=== PATIENT | female | born 1990 | race Caucasian/White ===

== ENCOUNTER 2022-05-12 16:49 | Emergency (ER) | payer MEDICAID, SELFPAY ==
[2022-05-12] VITALS (9 sets, daily range): BP systolic 97–113; BP diastolic 54–67; PULSE 66–115; RESP 16; TEMP 36.8–37.1; O2SAT 96–100; BMI 24.2
--- NOTE | 2022-05-12 16:54 | PC.NURSE ---
UA COLLECTED AT THIS TIME
[2022-05-12 17:16] LABS: Microscopic, Urine URINE MICROSCOPIC (MICROSCOPIC)
[2022-05-12 17:20] LABS: Appearance,Urine CLOUDY (Clear); Bilirubin,Urine Negative (Negative); Blood, Urine 3+ (Negative); Color,Urine YELLOW (Yellow); Glucose,Urine (UA) Negative (Negative); Ketones,Urine Negative (Negative); Leukocyte Esterase,Urine 1+ (Negative); Nitrate,Urine POSITIVE (Negative); Protein,Urine 1+ (Negative); Specific Gravity, Urine >= 1.030 (1.005-1.030)
[2022-05-12 17:23] LABS: Urine Pregnancy, HCG Qual. Positive (Negative)
--- NOTE | 2022-05-12 17:23 | PC.NURSE ---
ED MD AT BEDSIDE TO EVALUATE PT
[2022-05-12 17:28] LABS: Alanine Aminotransferase 21 U/L (12-78); Albumin Level 4.4 g/dl (3.5-5.0); Albumin/Globulin Ratio 1.6 (1.1-1.8); Alkaline Phosphatase 86 U/L (38-126); Anion Gap 10.7 mEq/L (5-15); Aspartate Amino Transferase 22 U/L (14-36); Bilirubin,Total 0.8 mg/dl (0.2-1.3); Blood Urea Nitrogen 10 mg/dl (7-17); Calcium 9.1 mg/dl (8.4-10.2); Carbon Dioxide 23 mmol/L (22.0-30.0); Chloride 106 mmol/L (98-107); Creatinine Clearance Estimated 126 mL/min (50-200); Estimated Glomerular Filt Rate 98 ml/min (>60); GFR (African American) 119 ML/MIN (>60); Globulin 2.7 g/dL (1.3-3.2); Glucose 100 mg/dl (74-100); Potassium 3.7 mmoL/L (3.5-5.1); Sodium 136 mmol/L (136-145); Total Protein,Serum 7.1 g/dl (6.3-8.2)
[2022-05-12 17:29] LABS: Basophils # 0.1 K/mm3 (0-0.2); Basophils % 1.1 % (0.1-2.0); Eosinophils # 0.2 K/mm3 (0.0-0.4); Eosinophils % 1.3 % (0.1-12.0); Hematocrit 40.2 % (37.0-47.0); Hemoglobin 13.3 g/dL (12.2-16.2); Lymphocytes # 1.4 K/mm3 (0.7-4.5); Lymphocytes % 11.8 % (10-50); Mean Corpuscular HGB Conc 33.1 g/dL (31.8-35.4); Mean Corpuscular Hemoglobin 33.7 pg (27.0-31.2); Mean Corpuscular Volume 101.8 fl (81-99); Mean Platelet Volume 8.8 fl (7.4-10.4); Monocytes # 0.4 K/mm3 (0.1-1.0); Monocytes % 3.3 % (1.7-9.3); Neutrophils # 9.9 K/mm3 (1.8-7.8); Neutrophils % 82.5 % (37.0-80.0); Platelet Count 196 K/mm3 (142-424); Red Blood Count 3.95 M/mm3 (4.20-5.40); Red Cell Distribution Width 12.4 % (11.5-17.5)
--- NOTE | 2022-05-12 17:46 | US_ITS ---
PROCEDURE INFORMATION: Exam: US , Transvaginal Exam date and time: 05/12/2022 6:45 PM Age: 31 years old Clinical indication: complicated by abdominal or pelvic pain; Left lower quadrant; First trimester (<14 weeks 0 days); Gestational age or lmp: 5 w 2 d; ; Prior surgery; Surgery date: 6+ months; Surgery type: Iud removal; Additional info: Torsion, vs ectopic, vs cyst; TECHNIQUE: Imaging protocol: Real-time transvaginal obstetrical ultrasound of the maternal pelvis with image documentation. Transvaginal imaging was used for better evaluation of the fetus, adnexa, and/or cervix. COMPARISON: No relevant prior studies available. FINDINGS: UTERUS: The uterus is gravid with a single intrauterine gestational sac containing tiny pole and yolk sac without cardiac activity. . COMPOSITE GESTATIONAL AGE/ POLE corresponds to 6 weeks and 1 day with estimated date of confinement of 01/04/2023. . ADNEXA/OVARIES: RIGHT ovary measures approximately 6.3 mL and LEFT ovary 10.0 mL. Simple appearing anechoic unilocular functional cysts/follicles in the ovaries without septations, debris or mural nodularity measuring 2.3 cm on the LEFT and 1.6 cm on the RIGHT. No adnexal mass or abnormality. No free fluid in the pelvis. IMPRESSION: 1. Single intrauterine gestation with tiny pole without visualization of cardiac activity. 2. Recommend short interval follow up in 7-10 days. 3. Bilateral anechoic unilocular simple functional cysts/follicles. COMMENT: RECOMMENDATIONS FOR FOLLOWUP IF NO VIABLE INTRAUTERINE : Tiny embryo (2-6 mm) and NO heartbeat: Followup sonogram in 7-10 days - if no heartbeat embryonic demise.
--- NOTE | 2022-05-12 17:47 | PC.NURSE ---
RADIOLOGY NOTIFIED OF TRANSVAGINAL U/S
[2022-05-12 17:53] LABS: Bacteria,Urine 1+ /lpf; WBC,Urine TNTC #/hpf (0-3)
--- NOTE | 2022-05-12 18:25 | HMH.EDGENADL ---
ED Disposition Clinical Impression: UTI (urinary tract infection) during Qualifiers: Trimester: unspecified trimester Qualified Code(s): O23.40 - Unspecified infection of urinary tract in , unspecified trimester Disposition: Home, Self-Care Condition on Discharge: Good Instructions: DI for Acute Abdominal Pain Additional Instructions: Please take cefdinir as prescribed for urinary tract infection seen in the emergency department and follow-up with your primary care physician immediately for pain consistent with threatened in the emergency department. You may go on to have a viable or a miscarriage. Return to the emergency department with persistent bleeding, worsening or persistent pain, as torsion is unlikely but not able to be excluded 100% as we discussed, due to limitation of transvaginal ultrasound. Please also follow-up in the next week with Dr. David with [facility]. Also return to the emergency department with fevers, inability to tolerate food or drink by mouth or other new or concerning symptoms. Prescriptions: Cefdinir [Omnicef 300mg Capsule] 300 mg PO BID #20 cap Transmission Status: Pending to [facility] Referrals: Provider,MD Tej [Primary Care Provider] - Diamond David DO [Physician] - - Critical Care Critical Care Time: No Attestation: On 05/12/22, the high probability of a clinically significant, sudden or life threatening deterioration of the following system(s) required my full and direct attention, intervention and personal management. The time I documented below is in addition to time spent performing reported procedures but includes the following listed in this critical care notation. Medical Decision Making - Sony Inquiry Pt receiving controlled substance: No Vital Signs: 05/12/22 16:51 05/12/22 17:00 05/12/22 17:30 Temperature 98.3 F Temperature Source Oral Pulse Rate 105 H 97 H Pulse Rate [Radial] 115 H Respiratory Rate 16 Blood Pressure 113/67 104/63 L Blood Pressure [Right Arm] 113/67 Blood Pressure Mean 76 73 Blood Pressure Mean [Right Arm] 82 Blood Pressure Position [Right Arm] Sitting 02 Sat by Pulse Oximetry 98 99 96 Oxygen Delivery Method Room Air 05/12/22 18:00 05/12/22 19:31 05/12/22 20:00 Temperature Temperature Source Pulse Rate 68 72 69 Pulse Rate [Radial] Respiratory Rate Blood Pressure 99/57 L 101/54 L 98/54 L Blood Pressure [Right Arm] Blood Pressure Mean 66 Blood Pressure Mean [Right Arm] Blood Pressure Position [Right Arm] 02 Sat by Pulse Oximetry 100 99 100 Oxygen Delivery Method Room Air Room Air 05/12/22 20:30 05/12/22 21:00 Temperature Temperature Source Pulse Rate 76 69 Pulse Rate [Radial] Respiratory Rate Blood Pressure 99/58 L 97/55 L Blood Pressure [Right Arm] Blood Pressure Mean Blood Pressure Mean [Right Arm] Blood Pressure Position [Right Arm] 02 Sat by Pulse Oximetry 100 100 Oxygen Delivery Method Room Air Room Air - Lab Data Lab Results 05/12/22 16:54: Urine Color Yellow, Urine Appearance Cloudy, Urine pH 6.0, Ur Specific [place] >= 1.030, Urine Protein 1+, Urine Glucose (UA) Negative, Urine Ketones Negative, Urine Blood 3+, Urine Nitrate Positive, Urine Bilirubin Negative, Urine Urobilinogen 4.0, Ur Leukocyte Esterase 1+ A, Urine RBC 10-20, Urine WBC Tntc, Ur Squamous Epith Cells 3-5, Urine Bacteria 1+ 05/12/22 16:54: Urine HCG, Qual Positive 05/12/22 17:10: WBC 12.0 H, RBC 3.95 L, Hgb 13.3, Hct 40.2, MCV 101.8 H, MCH 33.7 H, MCHC 33.1, RDW 12.4, Plt Count 196, MPV 8.8, Neut % (Auto) 82.5 H, Lymph % (Auto) 11.8, [place] % (Auto) 3.3, Eos % (Auto) 1.3, Baso % (Auto) 1.1, Neut # (Auto) 9.9 H, Lymph # (Auto) 1.4, [place] # (Auto) 0.4, Eos # (Auto) 0.2, Baso # (Auto) 0.1 05/12/22 17:10: Sodium 136, Potassium 3.7, Chloride 106, Carbon Dioxide 23, Anion Gap 10.7, BUN 10, Creatinine 0.70, Estimated Creat Clear 126, Estimated GFR 98, Est
--- NOTE | 2022-05-12 18:43 | PC.NURSE ---
1840 PT TO U/S PER WC AT THIS TIME
--- NOTE | 2022-05-12 21:06 | PC.NURSE ---
Pt updated on expected wait time. Pt agreeable. No other needs at this time.
--- NOTE | 2022-05-12 22:31 | PC.NURSE ---
MD at BS speaking with pt about results.
== END 2022-05-12 23:10 | disposition home or self-care (01) ==
PROVIDERS: Emergency Provider Student in an Organized Health Care Education/Training Program
DX: O23.41 Unspecified infection of urinary tract in pregnancy, first trimester (principal); N39.0 Urinary tract infection, site not specified; R10.32 Left lower quadrant pain
CPT/HCPCS: 36415; 76817; 80053; 81001; 81025; 84702; 85025; 86900; 86901; 87086; 87088; 87186; 99284

== ENCOUNTER → 2022-05-14 08:26 | Outpatient (CLI) | payer MEDICAID, SELFPAY ==
[2022-05-15 08:15] LABS: Progesterone 13.3 ng/mL (.)
== END ==
PROVIDERS: PCP Nurse Practitioner Family; Visit Provider Obstetrics & Gynecology
DX: Z34.90 Encounter for supervision of normal pregnancy, unspecified, unspecified trimester (principal)
CPT/HCPCS: 36415; 84144; 84702

== ENCOUNTER 2022-05-31 03:12 | Emergency (ER) | payer MEDICAID, SELFPAY ==
[2022-05-31 03:13] VITALS: BP 108/49; PULSE 129; RESP 16; TEMP 37.2; O2SAT 99; BMI 25.3
[2022-05-31 03:24] LABS: Microscopic, Urine URINE MICROSCOPIC (MICROSCOPIC)
[2022-05-31 03:25] LABS: Bilirubin,Urine Negative (Negative); Blood, Urine TRACE-I (Negative); Color,Urine YELLOW (Yellow); Glucose,Urine (UA) Negative (Negative); Ketones,Urine 2+ (Negative); Leukocyte Esterase,Urine Negative (Negative); Nitrate,Urine Negative (Negative); Protein,Urine Negative (Negative); Specific Gravity, Urine >= 1.030 (1.005-1.030); Urobilinogen,Urine 0.2 EU/dl (0.2)
[2022-05-31 03:28] LABS: Appearance,Urine Slightly Cloudy (Clear)
[2022-05-31 03:30] LABS: Influenza A, PCR Not Detected (NotDetected); Influenza B, PCR Not Detected (NotDetected)
[2022-05-31 03:36] LABS: Bacteria,Urine 1+ /lpf; Urine Pregnancy, HCG Qual. Positive (Negative); WBC,Urine Occasional #/hpf (0-3)
[2022-05-31 03:52] LABS: Alanine Aminotransferase 14 U/L (12-78); Albumin Level 4.4 g/dl (3.5-5.0); Albumin/Globulin Ratio 1.6 (1.1-1.8); Alkaline Phosphatase 75 U/L (38-126); Anion Gap 13.6 mEq/L (5-15); Aspartate Amino Transferase 20 U/L (14-36); Bilirubin,Total 1.1 mg/dl (0.2-1.3); Blood Urea Nitrogen 9 mg/dl (7-17); Calcium 9.6 mg/dl (8.4-10.2); Carbon Dioxide 21 mmol/L (22.0-30.0); Chloride 103 mmol/L (98-107); Creatinine Clearance Estimated 159 mL/min (50-200); Estimated Glomerular Filt Rate 117 ml/min (>60); GFR (African American) 142 ML/MIN (>60); Globulin 2.7 g/dL (1.3-3.2); Glucose 124 mg/dl (74-100); Potassium 3.6 mmoL/L (3.5-5.1); Sodium 134 mmol/L (136-145); Total Protein,Serum 7.1 g/dl (6.3-8.2)
[2022-05-31 03:54] LABS: Basophils % 0.1 % (0.1-2.0); Eosinophils % 0.5 % (0.1-12.0); Hematocrit 39.8 % (37.0-47.0); Hemoglobin 12.9 g/dL (12.2-16.2); Lymphocytes # 0.2 K/mm3 (0.7-4.5); Mean Corpuscular HGB Conc 32.3 g/dL (31.8-35.4); Mean Corpuscular Volume 102.1 fl (81-99); Mean Platelet Volume 8.2 fl (7.4-10.4); Monocytes # 0.2 K/mm3 (0.1-1.0); Monocytes % 2.9 % (1.7-9.3); Neutrophils # 7.1 K/mm3 (1.8-7.8); Neutrophils % 93.5 % (37.0-80.0); Platelet Count 175 K/mm3 (142-424); Red Cell Distribution Width 12.6 % (11.5-17.5); White Blood Count 7.6 K/mm3 (4.8-10.8)
[2022-05-31 03:56] LABS: MANUAL DIFFERENTIAL MANUAL DIFFERENTIAL (MANUAL DIFF)
[2022-05-31 03:59] LABS: Coronavirus 19, PCR Detected (NotDetected)
--- NOTE | 2022-05-31 04:02 | HMH.EDPREG ---
Discharge Plan Disposition Patient Disposition: Home, Self-Care Chief Complaint: Nausea/Vomiting/Diarrhea Prescriptions Prescriptions: No Action PNV cmb#95-ferrous fumarate-FA 28 mg iron- 800 mcg tablet 1 tab PO DAILY Referrals Referrals: Barbara Negrete [Primary Care Provider] - Enter time for follow up Clinical Impressions Clinical Impression: Hyperemesis gravidarum, , COVID-19 Instructions Patient Instructions: Hyperemesis Gravidarum, DI for COVID-19 (Suspected or Confirmed ) Discharge ED Provider: Jose Vasquez HPI General Chief complaint: Nausea/Vomiting/Diarrhea Stated complaint: 8 weeks , vomiting, body aches Time Seen by Provider: 05/31/22 04:02 Mode of Arrival: Ambulatory Source of Information: Patient, Spouse and Medical Record Limitations: No Limitations Description of Symptoms (Recalled from ER Triage Doc. by RN): pt states she began vomitting yesterday morning unable to keep anything down. then woke up around midnight have body aches. pt denies any abd pain. History of Present Illness HPI Narrative: pt with 8 weeks preg with vomiting - has body aches Complaint: other (vomiting ) Vaginal bleeding: none : Yes OB History - Previous Pregnancies: hyperemesis care: followed by OB Related Data Home Medications Medication Instructions Recorded Confirmed vit no.95-ferrous 1 tab PO DAILY Supplement 05/31/22 05/31/22 fumarate 28 mg-folic acid 800 mcg tablet Allergies Allergy/AdvReac Type Severity Reaction Status Date / Time No Known Allergies Allergy Verified 05/22/22 11:06 PFSH PFSH Social History Smoking Status: Current every day smoker alcohol intake: never substance use type: denies use current occupational status: other ROS Obtained: Yes All systems reviewed & no additional complaints except as documented and Yes Systems reviewed as appropriate & no additional complaints except as documented Physical Exam General General appearance: alert Head Head exam: normocephalic Eye Eye exam: Present PERRL and EOMI ENT ENT exam: Present mucous membranes moist Neck Neck exam: Present full ROM Respiratory Respiratory exam: Absent respiratory distress Cardiovascular Cardiovascular exam: Present regular rate Abdominal Exam Abdominal exam: Present soft; Absent tenderness Extremities Exam Extremities exam: Absent tenderness Back Exam Back exam: Absent CVA tenderness (R) Neurological Exam Neurological exam: Present alert, oriented X3 and CN II-XII intact Psychiatric Psychiatric exam: Present normal affect Skin Skin exam: Absent rash Medical Decision Making Medical Records Medical records reviewed: Yes I reviewed the patient's medical records. Sony Inquiry Pt receiving controlled substance: No Vital Signs: 05/31/22 03:13 05/31/22 05:00 Temperature 98.9 F Temperature Source Oral Pulse Rate 113 H Pulse Rate [Right] 129 H Respiratory Rate 16 Blood Pressure 93/53 L Blood Pressure [Right Arm] 108/49 L Blood Pressure Mean [Right Arm] 68 02 Sat by Pulse Oximetry 99 100 Oxygen Delivery Method Room Air Lab Data Lab results reviewed: Yes I reviewed the patient's lab results. Lab Results 05/31/22 03:16: Urine Color Yellow, Urine Appearance Slightly cloudy, Urine pH 6.0, Ur Specific [place] >= 1.030, Urine Protein Negative, Urine Glucose (UA) Negative, Urine Ketones 2+, Urine Blood Trace-i, Urine Nitrate Negative, Urine Bilirubin Negative, Urine Urobilinogen 0.2, Ur Leukocyte Esterase Negative, Urine WBC Occasional, Urine Bacteria 1+ 05/31/22 03:16: Urine HCG, Qual Positive 05/31/22 03:19: SARS-CoV-2 (PCR) Detected A, Influenza A Untype (PCR) Not detected, Influenza Type B (PCR) Not detected 05/31/22 03:35: HCG, Quant [id number] H 05/31/22 03:35: WBC 7.6, RBC 3.90 L, Hgb 12.9, Hct 39.8, MCV 102.1 H, MCH 33.0 H, MCHC 32.3, RDW 12.6, Plt Count 175, MPV 8.2, Neut % (Auto) 93.5 H, Lymph % (Auto) 3.0 L
[2022-05-31 04:37] LABS: HCG,Quantitative 91820 mIU/ml (0-5.42)
[2022-05-31 04:48] LABS: Lymphocytes % 3 % (10-50); Macrocytosis 1+; Monocytes % 1 % (2-9); Neutrophils % 96 % (42-76); Platelet Estimate Normal; Total Cells Counted 100
[2022-05-31 05:00] VITALS: BP 93/53; PULSE 113; O2SAT 100
--- NOTE | 2022-05-31 05:18 | PC.NURSE ---
Pt complains of severe nausea. RN notified.
[2022-05-31 06:20] VITALS: BP 104/78; PULSE 90; RESP 16; TEMP 37.1; O2SAT 97
== END 2022-05-31 06:20 | disposition home or self-care (01) ==
PROVIDERS: Emergency Provider Emergency Medicine; PCP Nurse Practitioner Family
DX: O98.511 Other viral diseases complicating pregnancy, first trimester (principal); U07.1 COVID-19; O21.0 Mild hyperemesis gravidarum; R19.7 Diarrhea, unspecified; M79.10 Myalgia, unspecified site; O99.331 Smoking (tobacco) complicating pregnancy, first trimester; F17.210 Nicotine dependence, cigarettes, uncomplicated; Z3A.08 8 weeks gestation of pregnancy
CPT/HCPCS: 80053; 81001; 81025; 84702; 85007; 85025; 96361; 96374; 99284; C9803; U0003; U0005

== ENCOUNTER → 2022-06-07 15:48 | Outpatient (CLI) | payer MEDICAID, SELFPAY | PROVIDERS: Visit Provider Obstetrics & Gynecology | DX: Z34.90 Encounter for supervision of normal pregnancy, unspecified, unspecified trimester (principal) | CPT/HCPCS: 87086 ==

== ENCOUNTER → 2022-06-25 11:18 | Outpatient (CLI) | payer MEDICAID, SELFPAY ==
[2022-06-25 13:27] LABS: Basophils % 0.4 % (0.1-2.0); Eosinophils # 0.1 K/mm3 (0.0-0.4); Eosinophils % 1.3 % (0.1-12.0); Hematocrit 37.1 % (37.0-47.0); Hemoglobin 12.5 g/dL (12.2-16.2); Lymphocytes # 1.3 K/mm3 (0.7-4.5); Lymphocytes % 20.2 % (10-50); Mean Corpuscular HGB Conc 33.6 g/dL (31.8-35.4); Mean Corpuscular Hemoglobin 34.1 pg (27.0-31.2); Mean Corpuscular Volume 101.3 fl (81-99); Mean Platelet Volume 8.6 fl (7.4-10.4); Monocytes # 0.3 K/mm3 (0.1-1.0); Monocytes % 4.3 % (1.7-9.3); Neutrophils # 4.7 K/mm3 (1.8-7.8); Neutrophils % 73.8 % (37.0-80.0); Platelet Count 200 K/mm3 (142-424); Red Blood Count 3.66 M/mm3 (4.20-5.40); Red Cell Distribution Width 13.2 % (11.5-17.5); White Blood Count 6.3 K/mm3 (4.8-10.8)
[2022-06-26 09:13] LABS: HIV Screen 4th Generation wRfx Non Reactive (Non Reactive); Hepatitis B Surface Antigen Negative (Negative); Hepatitis C Antibody <0.1 s/co ratio (0.0-0.9)
[2022-06-26 11:13] LABS: Rapid Plasma Reagin Ab Titer Non Reactive (NonRea<1:1)
== END ==
PROVIDERS: PCP Nurse Practitioner Family; Visit Provider Obstetrics & Gynecology
DX: Z34.90 Encounter for supervision of normal pregnancy, unspecified, unspecified trimester (principal)
CPT/HCPCS: 36415; 85025; 86592; 86703; 86762; 86850; 87340; 87380; G0432

== ENCOUNTER 2022-08-15 01:37 | Emergency (ER) | payer MEDICAID, SELFPAY ==
[2022-08-15] VITALS (7 sets, daily range): BP systolic 110–129; BP diastolic 65–77; PULSE 78–98; RESP 17–19; TEMP 36.7–36.8; O2SAT 96–98; BMI 48.3; BMI 21.9
[2022-08-15 01:59] LABS: Microscopic, Urine URINE MICROSCOPIC (MICROSCOPIC)
[2022-08-15 02:00] LABS: Bilirubin,Urine Negative (Negative); Blood, Urine Negative (Negative); Color,Urine YELLOW (Yellow); Glucose,Urine (UA) Negative (Negative); Ketones,Urine Negative (Negative); Leukocyte Esterase,Urine Negative (Negative); Nitrate,Urine Negative (Negative); Protein,Urine Negative (Negative); Specific Gravity, Urine >= 1.030 (1.005-1.030); Urobilinogen,Urine 0.2 EU/dl (0.2)
[2022-08-15 02:22] LABS: Appearance,Urine Slightly Cloudy (Clear); Bacteria,Urine 1+ /lpf; WBC,Urine Occasional #/hpf (0-3)
[2022-08-15 02:31] LABS: Basophils # 0.1 K/mm3 (0-0.2); Basophils % 0.5 % (0.1-2.0); Eosinophils # 0.2 K/mm3 (0.0-0.4); Eosinophils % 1.5 % (0.1-12.0); Hematocrit 35.1 % (37.0-47.0); Hemoglobin 11.7 g/dL (12.2-16.2); Lymphocytes # 1.3 K/mm3 (0.7-4.5); Lymphocytes % 12.3 % (10-50); Mean Corpuscular HGB Conc 33.3 g/dL (31.8-35.4); Mean Corpuscular Volume 101.8 fl (81-99); Mean Platelet Volume 8.6 fl (7.4-10.4); Monocytes # 0.4 K/mm3 (0.1-1.0); Monocytes % 3.4 % (1.7-9.3); Neutrophils # 8.4 K/mm3 (1.8-7.8); Neutrophils % 82.3 % (37.0-80.0); Platelet Count 213 K/mm3 (142-424); Red Blood Count 3.45 M/mm3 (4.20-5.40); Red Cell Distribution Width 13.5 % (11.5-17.5); White Blood Count 10.2 K/mm3 (4.8-10.8)
[2022-08-15 02:34] LABS: Chloride 102 mmol/L (98-107); Potassium 3.8 mmoL/L (3.5-5.1); Sodium 136 mmol/L (136-145)
[2022-08-15 02:37] LABS: Alanine Aminotransferase 51 U/L (12-78); Albumin Level 3.9 g/dl (3.5-5.0); Albumin/Globulin Ratio 1.5 (1.1-1.8); Alkaline Phosphatase 82 U/L (38-126); Anion Gap 12.8 mEq/L (5-15); Aspartate Amino Transferase 40 U/L (14-36); Bilirubin,Total 0.5 mg/dl (0.2-1.3); Blood Urea Nitrogen 6 mg/dl (7-17); Calcium 9.4 mg/dl (8.4-10.2); Carbon Dioxide 25 mmol/L (22.0-30.0); Creatinine Clearance Estimated 206 mL/min (50-200); Estimated Glomerular Filt Rate 187 ml/min (>60); GFR (African American) 227 ML/MIN (>60); Globulin 2.6 g/dL (1.3-3.2); Glucose 96 mg/dl (74-100); Total Protein,Serum 6.5 g/dl (6.3-8.2)
[2022-08-15 02:54] LABS: HCG,Quantitative 9720 mIU/ml (0-5.42)
--- NOTE | 2022-08-15 03:17 | HMH.EDABDPAI ---
Discharge Plan Disposition Patient Disposition: Home, Self-Care Chief Complaint: Abdominal Pain Prescriptions Prescriptions: No Action promethazine 25 mg tablet 25 mg PO TID PRN (Reason: nausea and vomiting) Qty: 20 2RF PNV cmb#95-ferrous fumarate-FA 28 mg iron- 800 mcg tablet 1 tab PO DAILY Referrals Follow up/Referrals: Barbara Negrete [Primary Care Provider] - See instructions Clinical Impressions Clinical Impression: , Pain of round ligament during Instructions Patient Instructions: DI for Abdominal Pain -- Early Discharge ED Provider: Jose Vasquez Abdominal Pain HPI General Chief Complaint: Abdominal Pain Stated Complaint: 19 weeks , Left side abd pain,vomiting Time Seen by Provider: 08/15/22 03:17 Mode of Arrival: Family Vehicle Source of Information: Patient Limitations: No Limitations Description of Symptoms (Recalled from ER Triage Doc. by RN): Pt c/o L lower abd pain with n/v. She reports to be 19 wk , /A1. She states the pain started @2300 (08/14) very suddenly and stabbing. She rates it 07/15 on [employer]. She also reports that a piece of my paragard was left in my left overay but it never gave me any trouble . Pt sees Dr. David for OBGYN. Denies any vaginal bleeding or fluid leaking. Denies fever or chills. heart tones are 149 and she reports the baby have been kind of active . History of Present Illness HPI narrative: pt with acute lt lower abd pain w/o vag bleeding at 19 weeks - no fever or chills complaint: abdominal pain Onset (ago): hour(s) Consistency: intermittent Location: LLQ Severity: moderate Radiation: suprapubic Associated symptoms: denies other symptoms Related Data Home Medications Medication Instructions Recorded Confirmed vit no.95-ferrous 1 tab PO DAILY Supplement 05/31/22 08/15/22 fumarate 28 mg-folic acid 800 mcg tablet Previous Rx's Medication Instructions Recorded promethazine 25 mg tablet 25 mg PO TID PRN nausea and 06/07/22 vomiting #20 tabs Allergies Allergy/AdvReac Type Severity Reaction Status Date / Time No Known Allergies Allergy Verified 08/02/22 10:30 PFSH PFS Medical History Hyperemesis gravidarum Social History Smoking Status: Current every day smoker alcohol intake: never substance use type: denies use current occupational status: other Travel in the last 8 weeks: None ROS Obtained: Yes All systems reviewed & no additional complaints except as documented Genitourinary Female Genitourinary: Reports as per HPI and Denies abnormal vaginal bleeding Physical Exam General General appearance: alert Head Head exam: normocephalic Eye Eye exam: Present PERRL and EOMI ENT ENT exam: Present mucous membranes moist Neck Neck exam: Present trachea midline Respiratory Respiratory exam: Absent respiratory distress Cardiovascular Cardiovascular exam: Present regular rate Abdominal Exam Abdominal exam: Present soft Abdominal tenderness: Present suprapubic Comment: gravid with 1 fb below umbilicus and tender lt lower abd Extremities Exam Extremities exam: Present full ROM Neurological Exam Neurological exam: Present alert and oriented X3 Skin Skin exam: Absent rash Medical Decision Making Medical Records Medical records reviewed: Yes I reviewed the patient's medical records. Sony Inquiry Pt receiving controlled substance: No Vital Signs: 08/15/22 01:40 08/15/22 01:48 08/15/22 02:00 Temperature 98.2 F Temperature Source Oral Pulse Rate 91 H 93 H Pulse Rate [Right] 98 H Respiratory Rate 19 Blood Pressure 129/66 111/67 Blood Pressure [Right Arm] 129/66 Blood Pressure Mean [Right Arm] 87 Blood Pressure Source [Right Arm] Automatic Cuff 02 Sat by Pulse Oximetry 98 96 97 Oxygen Delivery Method Room Air Room A
--- NOTE | 2022-08-15 03:29 | PC.NURSE ---
spoke with , the patients ob, regarding patients care. Per , she would like the patient to have 5mg of flexeril because she is concerned that it is a muscle. Order entered per 's verbal order.
== END 2022-08-15 04:20 | disposition home or self-care (01) ==
PROVIDERS: Emergency Provider Emergency Medicine; PCP Nurse Practitioner Family
DX: O99.612 Diseases of the digestive system complicating pregnancy, second trimester (principal); O21.0 Mild hyperemesis gravidarum; O99.332 Smoking (tobacco) complicating pregnancy, second trimester; Z3A.19 19 weeks gestation of pregnancy
CPT/HCPCS: 80053; 81001; 84702; 85025; 99283

== ENCOUNTER → 2022-08-22 13:01 | Outpatient (CLI) | payer MEDICAID, SELFPAY ==
--- NOTE | 2022-08-22 13:09 | US_ITS ---
FINAL REPORT CLINICAL HISTORY: 20 week anatomy scan FINDINGS: There is a single live intrauterine gestation. Presentation is breech. The cervix is closed and measures 3.4 cm. Placenta is posterior, grade 1. No previa is noted at the end of the exam. Multiple small fibroids are identified measuring up to 3.2 x 1.9 cm. Cardiac activity is confirmed at 150 bpm. Three-vessel cord with satisfactory umbilical cord insertion. Four-chamber heart is noted. AMNIOTIC FLUID: Appropriate amount. MEASUREMENTS: ULTRASOUND AGE: 20 weeks 4 days. GESTATION AGE: 19 weeks 6 days. ESTIMATED WEIGHT: 366 g GROWTH PERCENTILE: 86% LMP percentile BPD: 4.8 cm corresponding with 20 weeks 4 days. OFD: 6.4 cm corresponding with 21 weeks 2 days. HC: 17.8 cm corresponding with 20 weeks 2 days. AC: 16.0 cm corresponding with 21 weeks 1 days. FL: 3.2 cm corresponding with 20 weeks 1 days. CEREBELLUM: 2.0 cm corresponding with 20 weeks 4 days. HUMERUS: 3.2 cm corresponding with 20 weeks 6 days. HC/AC: 1.11 CI: 75% FL/BPD: 68% FL/AC: 20% IMPRESSION: Single living IUP with an ultrasound age of 20 weeks 4 days. No gross anomaly identified. Reviewed, Interpreted and Dictated by Rajesh Cisneros MD Transcribed by Reba Whitehead Authenticated and [facility]
== END ==
PROVIDERS: PCP Nurse Practitioner Family; Visit Provider Obstetrics & Gynecology
DX: Z34.90 Encounter for supervision of normal pregnancy, unspecified, unspecified trimester (principal); Z3A.20 20 weeks gestation of pregnancy
CPT/HCPCS: 76811

== ENCOUNTER → 2022-10-04 08:51 | Outpatient (CLI) | payer MEDICAID, SELFPAY ==
[2022-10-04 09:20] LABS: Basophils # 0.1 K/mm3 (0-0.2); Basophils % 0.5 % (0.1-2.0); Eosinophils # 0.1 K/mm3 (0.0-0.4); Eosinophils % 1.1 % (0.1-12.0); Hematocrit 38.2 % (37.0-47.0); Hemoglobin 12.2 g/dL (12.2-16.2); Lymphocytes # 1.6 K/mm3 (0.7-4.5); Lymphocytes % 14.1 % (10-50); Mean Corpuscular HGB Conc 31.8 g/dL (31.8-35.4); Mean Corpuscular Hemoglobin 33.8 pg (27.0-31.2); Mean Platelet Volume 8.6 fl (7.4-10.4); Monocytes # 0.5 K/mm3 (0.1-1.0); Monocytes % 4.1 % (1.7-9.3); Neutrophils # 8.9 K/mm3 (1.8-7.8); Neutrophils % 80.2 % (37.0-80.0); Platelet Count 270 K/mm3 (142-424); Red Cell Distribution Width 13.4 % (11.5-17.5); White Blood Count 11.1 K/mm3 (4.8-10.8)
[2022-10-04 09:34] LABS: Glucose,Fasting 92 mg/dl (74-100)
[2022-10-04 10:34] LABS: Glucose 1 Hour 129 mg/dL (74-100)
== END ==
PROVIDERS: PCP Nurse Practitioner Family; Visit Provider Obstetrics & Gynecology
DX: Z34.90 Encounter for supervision of normal pregnancy, unspecified, unspecified trimester (principal); Z3A.22 22 weeks gestation of pregnancy
CPT/HCPCS: 36415; 82951; 85025

== ENCOUNTER → 2022-12-13 08:15 | Outpatient (CLI) | payer OTHER, SELFPAY | PROVIDERS: Visit Provider Obstetrics & Gynecology | DX: Z34.90 Encounter for supervision of normal pregnancy, unspecified, unspecified trimester (principal) | CPT/HCPCS: 86403 ==

== ENCOUNTER 2023-01-06 04:50 | Inpatient (IN) | payer OTHER, SELFPAY ==
[2023-01-06 05:01] VITALS: BMI 31.8
[2023-01-06 05:09] VITALS: BP 129/74; PULSE 116; RESP 18; TEMP 36.6; O2SAT 97
[2023-01-06 05:20] VITALS: BMI 31.8
[2023-01-06 05:33] LABS: Coronavirus 19, PCR Not Detected (NotDetected); Influenza A, PCR Not Detected (NotDetected); Influenza B, PCR Not Detected (NotDetected)
[2023-01-06 05:39] LABS: Basophils % 0.4 % (0.1-2.0); Eosinophils # 0.2 K/mm3 (0.0-0.4); Eosinophils % 1.4 % (0.1-12.0); Hematocrit 33.7 % (37.0-47.0); Lymphocytes # 2.1 K/mm3 (0.7-4.5); Lymphocytes % 20.4 % (10-50); Mean Corpuscular HGB Conc 32.7 g/dL (31.8-35.4); Mean Corpuscular Hemoglobin 31.1 pg (27.0-31.2); Mean Corpuscular Volume 94.9 fl (81-99); Mean Platelet Volume 10.3 fl (7.4-10.4); Monocytes # 0.4 K/mm3 (0.1-1.0); Neutrophils # 7.7 K/mm3 (1.8-7.8); Neutrophils % 73.8 % (37.0-80.0); Platelet Count 261 K/mm3 (142-424); Red Blood Count 3.55 M/mm3 (4.20-5.40); Red Cell Distribution Width 14.7 % (11.5-17.5); White Blood Count 10.4 K/mm3 (4.8-10.8)
[2023-01-06 06:49] LABS: Microscopic, Urine URINE MICROSCOPIC (MICROSCOPIC)
[2023-01-06 06:55] LABS: Appearance,Urine CLEAR (Clear); Bilirubin,Urine Negative (Negative); Blood, Urine 1+ (Negative); Color,Urine YELLOW (Yellow); Glucose,Urine (UA) Negative (Negative); Ketones,Urine Negative (Negative); Leukocyte Esterase,Urine 3+ (Negative); Nitrate,Urine Negative (Negative); Protein,Urine TRACE (Negative); Specific Gravity, Urine 1.015 (1.005-1.030); Urobilinogen,Urine 0.2 EU/dl (0.2)
[2023-01-06 07:07] LABS: Barbiturates Screen,Urine Negative ng/ml (<200)
[2023-01-06 07:08] LABS: Bacteria,Urine 1+ /lpf; Benzodiazepines Screen,Urine Negative ng/ml (<200); RBC,Urine Occasional #/hpf (0-3)
[2023-01-06 07:09] LABS: Amphetamine/Metha Screen,Urine Negative ng/ml (<1000); Methadone Screen,Urine Negative ng/ml (<300)
[2023-01-06 07:10] LABS: Cannabinoid Screen,Urine Negative ng/ml (<50); Cocaine Screen,Urine Negative ng/ml (<300)
[2023-01-06 07:11] LABS: Opiate Screen,Urine Negative ng/ml (<300)
[2023-01-06 07:12] LABS: Phencyclidine Screen,Urine Negative ng/ml (<25)
[2023-01-06 07:30] VITALS: BP 118/69; PULSE 98; RESP 16; TEMP 36.4; O2SAT 98
--- NOTE | 2023-01-06 07:43 | EXP.OB.APHP ---
OB - H&P: HPI Antepartum History of Present Illness Chief complaint: Elective induction of labor History of present illness: Ms Naa Raza is a 32 yo at 39w3d who presents to [facility] Delivery for scheduled elective induction of labor. She admits to irregular contractions and pelvic pressure. Baby is very active. Denies leakage of fluid and vaginal bleeding. History of Present Criteria for establishing EDC:: based on 1st trimester US only care: good care Ultrasounds: normal mid trimester US Obstetrical complications: none Medical complications: none Labs Blood type: O (+) positive Rubella: immune RPR/VDRL: nonreactive GBS status: negative HBsAG: negative PFSH PFS Disclaimer: The information contained in this section may have been updated after the patient was seen, as this information can be updated by other users. Medical History (Updated 01/06/23 @ 07:51 by Diamond David DO) Encounter for elective induction of labor Furuncle Heartburn during Hyperemesis gravidarum with 39 completed weeks gestation Tobacco use affecting , antepartum Social History Smoking Status: Current every day smoker alcohol intake: never substance use type: denies use current occupational status: other Travel in the last 8 weeks: None Review of Systems Review of Systems Review of systems:: pertinent systems reviewed and negative unless documented below Meds Home Medications and Allergies Home Medications Medication Instructions Recorded Confirmed Type promethazine 25 mg tablet 25 mg PO TID PRN nausea and 06/07/22 01/03/23 Rx vomiting #20 tabs ferrous sulfate 325 mg (65 mg 325 mg PO DAILY #30 tabs 08/27/22 01/03/23 Rx iron) tablet (FeroSul) pediatric multivitamin no.76 1 tab PO DAILY 11/08/22 01/03/23 History (Adalberto Complete chewable tablet) cephalexin 500 mg capsule 500 mg PO Q6H 7 days #28 caps 12/30/22 01/03/23 Rx New Prescriptions to Start Prescriptions: Allergies Allergy/AdvReac Type Severity Reaction Status Date / Time No Known Allergies Allergy Verified 01/03/23 09:26 OB - H&P: Exam Physical Exam Vital signs: Temp Pulse Resp BP Pulse Ox 97.9 F 116 H 18 129/74 97 01/06/23 05:09 01/06/23 05:09 01/06/23 05:09 01/06/23 05:09 01/06/23 05:09 Constitutional no acute distress Routine HEENT Exam Head: Present normocephalic and atraumatic Eye: Absent conjunctivae pink ENT: Present mucous membranes moist Routine Neck Exam Present full ROM Routine Respiratory Exam Present CTA bilaterally and normal respiratory effort Routine Cardiovascular Exam Present RRR Routine Abdominal Exam Present soft (Gravid); Absent tenderness Routine Rectal Exam Patient deferred: visual exam Routine Exam External: Present normal urethra appearance; Absent erythema, tenderness, lesions or lacerations Routine Extremities Exam Present edema (+1 bilateral lower extremity swelling) and full ROM; Absent calf tenderness Routine Neurological Exam Present alert, oriented X3 and moving all extremities Routine Psychiatric Exam Present normal affect Detailed Labor and Delivery Exam Dilation (cm): 3 Effacement (%): 75 Cervix position: posterior station: -2 Consistency: soft Membranes: artificially ruptured (amniotomy performed with amnihook without difficulty at 0701) Amniotic fluid: clear Baseline heart rate: 130 monitor accelerations: Present monitor decelerations: None ferry terminal supervisor variability: Moderate (11-25) Contraction frequency (min): 4 OB - Results Labs Labs: Short CBC 01/06/23 Range/Units 05:20 WBC 10.4 (4.8-10.8) K/mm3 Hgb 11.0 L (12.2-16.2) g/dL Hct 33.7 L (37.0-47.0) % Plt Count 261 (142-424) K/mm3 Urine 01/06/23 Range/Units 06:40 Urine Color Yellow (Yellow) Urine Appearance Clear (Clear)
--- NOTE | 2023-01-06 09:17 | HMH.PHAINT1 ---
Pharmacy Intervention Comments: Reconciled patient's home medications using pharmacy fill history and previous patient interview.
[2023-01-06 12:30] VITALS: BP 98/55; PULSE 86; RESP 18; TEMP 36.7; O2SAT 99
[2023-01-06 16:30] VITALS: BP 123/72; PULSE 104; RESP 18; TEMP 36.6
--- NOTE | 2023-01-06 18:44 | P.PCN_ITS ---
Delivery Note Delivery Date:: 01/06/23 Delivery Time:: 18:28 Anesthesia Type: Epidural Was labor medically induced?: No Induction method: per pitocin protocol Gestational age (weeks): 39 delivered prior to 39 weeks?: No Infant Gender: Female at 1 minute: 7 at 5 minutes: 9 Delivery Procedure:: Mom complete with epidural. Pushed for approximately 62 minutes. Head delivered to level of cheeks in XOCHITL position. Shoulder dystocia immediately recognized and relieved by Samantha manuever and suprapubic pressure with gentle downward pressure within 30 seconds. No nuchal cord. Anterior shoulder delivered with above maneuvers. Posterior shoulder and remainder of body delivered spo ntaneously. Baby placed on maternal abdomen, mouth and nares bulb suctioned, warmed/dried and stimulated. Delayed cord clamping was performed for 60 seconds. Cord was clamped and cut by father of baby. Cord blood was obtained. Placenta delivered spontaneously and intact. Bilateral periurethral abrasions. Hemostasis noted. Mom and baby were skin to skin and doing well after delivery. Live female baby (baby's name is Leigh) APGARs 7, 9 EBL 100 mL Placental Delivery Description: Spontaneous
[2023-01-06 20:15] VITALS: BP 134/89; PULSE 110; RESP 17; TEMP 36.8; O2SAT 99
[2023-01-07 04:05] VITALS: BP 108/55; PULSE 95; RESP 17; TEMP 36.6; O2SAT 98
[2023-01-07 07:17] LABS: Basophils # 0.1 K/mm3 (0-0.2); Basophils % 0.3 % (0.1-2.0); Eosinophils # 0.1 K/mm3 (0.0-0.4); Eosinophils % 0.5 % (0.1-12.0); Hematocrit 31.6 % (37.0-47.0); Hemoglobin 9.7 g/dL (12.2-16.2); Lymphocytes % 13.6 % (10-50); Mean Corpuscular HGB Conc 30.8 g/dL (31.8-35.4); Mean Corpuscular Hemoglobin 29.8 pg (27.0-31.2); Mean Corpuscular Volume 96.6 fl (81-99); Mean Platelet Volume 9.3 fl (7.4-10.4); Monocytes # 0.5 K/mm3 (0.1-1.0); Monocytes % 3.4 % (1.7-9.3); Neutrophils # 12.4 K/mm3 (1.8-7.8); Neutrophils % 82.2 % (37.0-80.0); Platelet Count 204 K/mm3 (142-424); Red Blood Count 3.27 M/mm3 (4.20-5.40); Red Cell Distribution Width 14.7 % (11.5-17.5); White Blood Count 15.1 K/mm3 (4.8-10.8)
[2023-01-07 07:20] LABS: MANUAL DIFFERENTIAL MANUAL DIFFERENTIAL (MANUAL DIFF)
[2023-01-07 07:35] LABS: Lymphocytes % 9 % (10-50); Monocytes % 3 % (2-9); Neutrophils % 88 % (42-76); Platelet Estimate Normal; RBC Morphology Normal; Total Cells Counted 100
[2023-01-07 08:00] VITALS: BP 118/63; PULSE 92; RESP 16; TEMP 36.7; O2SAT 99
--- NOTE | 2023-01-07 10:21 | P.PN_ITS ---
Subjective *Date: 01/07/23 *Time: 10:21 Interval history: PPD # 1 s/p Feeling well this morning. Pain controlled. Light lochia. Formula feeding. Voiding without difficulty and passing flatus. Denies fever/chills, chest pain and shortness of breath. No headaches or vision changes. Admits to lower extremity swelling. No calf pain. Medical Exam Vital signs and Labs for Last 24 Hours: Vital Signs Temp Pulse Resp BP Pulse Ox 01/07/23 08:00 98.0 F 92 H 16 118/63 99 01/07/23 04:05 97.8 F 95 H 17 108/55 L 98 01/06/23 20:15 98.2 F 110 H 17 134/89 99 01/06/23 16:30 97.8 F 104 H 18 123/72 01/06/23 12:30 98.1 F 86 18 98/55 L 99 Laboratory Results - last 24 hr 01/07/23 06:44: WBC 15.1 H D, RBC 3.27 L, Hgb 9.7 L, Hct 31.6 L, MCV 96.6, MCH 29.8, MCHC 30.8 L, RDW 14.7, Plt Count 204, MPV 9.3, Neut % (Auto) 82.2 H, Lymph % (Auto) 13.6, [place] % (Auto) 3.4, Eos % (Auto) 0.5, Baso % (Auto) 0.3, Neut # (Auto) 12.4 H, Lymph # (Auto) 2.0, [place] # (Auto) 0.5, Eos # (Auto) 0.1, Baso # (Auto) 0.1, Total Counted 100, Neutrophils % (Manual) 88 H, Lymphocytes % (Manual) 9 L, Monocytes % (Manual) 3, Platelet Estimate Normal, RBC Morphology Normal I & O for Labs for Last 24 Hours: Intake & Output 01/04/23 01/05/23 01/06/23 01/07/23 23:59 23:59 23:59 23:59 Weight 203 lb Microbiology Reports for the Last 24 Hours: Microbiology 01/06/23 06:40 Urine,Clean Catch Urine Culture - Preliminary Head: Present atraumatic and normocephalic ENT: Present mucous membranes moist Neck: Present normal inspection and full ROM Respiratory: Present CTA bilaterally and normal respiratory effort Cardiac: Present Reg Rate and Rhythm GI: Present soft; Absent distention or tenderness Comments:: Uterine fundus firm and below umbilicus Rectal (female): Present deferred (female): Present deferred Extremities: Present full ROM and edema (+2 bilateral lower extremity edemea); Absent calf tenderness Neuro: Present alert, awake, oriented x 3 and moves all extremities Assessment and Plan *Assessment and plan (1) with 39 completed weeks gestation: Status: Acute Category: Medical Code(s): Z3A.39 - 39 weeks gestation of (2) Encounter for elective induction of labor: Status: Acute Category: Medical Code(s): Z34.90 - Encounter for supervision of normal , unspecified, unspecified trimester (3) Tobacco use affecting , antepartum: Status: Acute Category: Medical Code(s): O99.330 - Smoking (tobacco) complicating , unspecified trimester (4) Heartburn during : Status: Acute Category: Medical Code(s): O26.899 - Other specified related conditions, unspecified trimester; R12 - Heartburn (5) Acute blood loss anemia: Status: Acute Category: Medical Code(s): D62 - Acute posthemorrhagic anemia Plan Continue routine care Encouraged increased ambulation Plan d/c home tomorrow
[2023-01-07 15:12] VITALS: BP 112/67; PULSE 99; RESP 16; TEMP 36.6; O2SAT 98
[2023-01-07 20:15] VITALS: BP 121/77; PULSE 84; RESP 17; TEMP 36.8; O2SAT 98
[2023-01-08 04:00] VITALS: BP 107/59; PULSE 90; RESP 18; TEMP 36.8; O2SAT 99
[2023-01-08 08:15] VITALS: BP 119/60; PULSE 90; RESP 17; TEMP 36.8; O2SAT 99
--- NOTE | 2023-01-08 11:07 | EXP.DC.SUM ---
General Admission date:: 01/06/23 Discharge date: 01/08/23 HPI HPI HPI: PPD # 2 s/p Feeling well. Pain is controlled. She is formula feeding. Voiding without difficulty and passing flatus. Tolerating regular diet. Light lochia. Denies fever/chills, chest pain and shortness of breath. No headaches or vision changes. Admits to mild lower extremity swelling. No calf pain. Hospital Course Hospital Course Hospital Course: Ms Naa Raza is a 32 yo at 39w3d who presented to [facility] Labor and Delivery for scheduled elective induction of labor. She underwent induction of labor with Pitocin. She had a normal spontaneous vaginal delivery with shoulder dystocia resolved within 30 seconds with Samantha maneuver and suprapubic pressure with second degree perineal laceration on 01/06/23 at 1828. She delivered a little girl (Leigh) weighing 9 lb 15 oz. APGARs 7, 9. EBL 100 mL. She is doing well . She is formula feeding. Light lochia. Voiding without difficulty and passing flatus. Tolerating regular diet. Vital signs stable. Heart regular rate and rhythm. Lungs clear to auscultation. Abdomen soft, nontender. She had +2 bilateral lower extremity edema. No calf tenderness to palpation. Normal hospital course. She was discharged home on PPD # 2. Exam Data for Last 24 hours Vital signs and Labs for Last 24 Hours: Temp Pulse Resp BP Pulse Ox 98.2 F 90 17 119/60 99 01/08/23 08:15 01/08/23 08:15 01/08/23 08:15 01/08/23 08:15 01/08/23 08:15 I & O for Last 24 hours: Intake & Output 01/05/23 01/06/23 01/07/23 01/08/23 23:59 23:59 23:59 23:59 Weight 203 lb Microbiology Reports for the Last 24 Hours: Microbiology 01/06/23 06:40 Urine,Clean Catch Urine Culture - Preliminary Constitutional Constitutional: no acute distress *Routine HEENT Exam Head: Present normocephalic and atraumatic Eye: Absent conjunctivae pink ENT: Present mucous membranes moist *Routine Neck Exam Neck: Present full ROM *Routine Respiratory Exam Respiratory: Present CTA bilaterally and normal respiratory effort *Routine Cardiovascular Exam Cardiovascular: Present RRR *Routine Abdominal Exam Abdominal: Present soft and normoactive bowel sounds; Absent tenderness *Routine Rectal Exam Patient deferred: visual exam *Routine Exam Patient deferred: external exam *Routine Extremities Exam Extremities: Present edema (+2 bilateral lower extremity edema) and full ROM; Absent calf tenderness *Routine Neurological Exam Neurological: Present alert, oriented X3 and moving all extremities Routine Psychiatric Exam Psychiatric: Present normal affect and cooperative Results Data Completed and Pending Labs on day of discharge: Preliminary micro results at discharge 01/06/23 06:40 Urine Culture - Preliminary Urine,Clean Catch DS: Diagnosis Discharge Diagnosis (1) with 39 completed weeks gestation: Status: Acute (2) Encounter for elective induction of labor: Status: Acute (3) Tobacco use affecting , antepartum: Status: Acute (4) Heartburn during : Status: Acute (5) Acute blood loss anemia: Status: Acute Meds Home Medications and Allergies Home Medications Medication Instructions Recorded Confirmed Type pediatric multivitamin no.76 1 tab PO DAILY Diet supplement 11/08/22 01/06/23 History (Flintstones Complete chewable tablet) cephalexin 500 mg capsule 500 mg PO Q6H Urinary tract 01/06/23 01/06/23 History infection ferrous sulfate 325 mg (65 mg 325 mg PO DAILY Diet supplement 01/06/23 01/06/23 History iron) tablet (FeroSul) ibuprofen 400 mg tablet 800 mg PO Q8HP PRN Mild To 01/08/23 Rx Moderate Pain #40 tabs New Prescriptions to Start Prescriptions: Diamond Person Allergies Allergy/AdvReac Type Severity Reaction Status Date / Time No Known Allergies Allergy Verified 01/03/23
== END 2023-01-08 12:27 | disposition home or self-care (01) | DRG 806 ==
PROVIDERS: Admitting Provider Obstetrics & Gynecology; PCP Nurse Practitioner Family; Visit Provider Obstetrics & Gynecology
DX: O99.334 Smoking (tobacco) complicating childbirth (principal); D62 Acute posthemorrhagic anemia; Z37.0 Single live birth; Z3A.39 39 weeks gestation of pregnancy; O66.0 Obstructed labor due to shoulder dystocia; Z23 Encounter for immunization; O90.81 Anemia of the puerperium
CPT/HCPCS: 59409; 36415; 59025; 80305; 81001; 85007; 85025; 86850; 87086; 87088; 87186; 94761; C1758; C9803; G0283; J0696; U0003; U0005

== ENCOUNTER → 2023-03-19 15:02 | Outpatient (CLI) | payer OTHER, SELFPAY ==
[2023-03-19 16:04] LABS: Basophils % 0.5 % (0.1-2.0); Eosinophils # 0.2 K/mm3 (0.0-0.4); Eosinophils % 3.8 % (0.1-12.0); Hematocrit 42.2 % (37.0-47.0); Hemoglobin 13.7 g/dL (12.2-16.2); Lymphocytes # 1.8 K/mm3 (0.7-4.5); Lymphocytes % 31.7 % (10-50); Mean Corpuscular HGB Conc 32.6 g/dL (31.8-35.4); Mean Corpuscular Hemoglobin 30.2 pg (27.0-31.2); Mean Corpuscular Volume 92.7 fl (81-99); Mean Platelet Volume 8.3 fl (7.4-10.4); Monocytes # 0.3 K/mm3 (0.1-1.0); Monocytes % 4.8 % (1.7-9.3); Neutrophils # 3.4 K/mm3 (1.8-7.8); Neutrophils % 59.2 % (37.0-80.0); Platelet Count 219 K/mm3 (142-424); Red Blood Count 4.55 M/mm3 (4.20-5.40); Red Cell Distribution Width 15.5 % (11.5-17.5); White Blood Count 5.7 K/mm3 (4.8-10.8)
[2023-03-19 16:19] LABS: Alanine Aminotransferase 23 U/L (12-78); Albumin Level 4.8 g/dl (3.5-5.0); Alkaline Phosphatase 75 U/L (38-126); Aspartate Amino Transferase 24 U/L (14-36); Bilirubin,Total 1.3 mg/dl (0.2-1.3); Blood Urea Nitrogen 15 mg/dl (7-17); Calcium 8.9 mg/dl (8.4-10.2); Carbon Dioxide 25 mmol/L (22.0-30.0); Chloride 104 mmol/L (98-107); Estimated Glomerular Filt Rate 73 ml/min (>60); GFR (African American) 88 ML/MIN (>60); Globulin 2.4 g/dL (1.3-3.2); Glucose 90 mg/dl (74-100); Sodium 141 mmol/L (136-145); Total Protein,Serum 7.2 g/dl (6.3-8.2)
[2023-03-19 16:56] LABS: HCG,Quantitative < 2 mIU/ml (0-5.42)
== END ==
PROVIDERS: Visit Provider Obstetrics & Gynecology
DX: Z30.2 Encounter for sterilization (principal)
CPT/HCPCS: 36415; 80053; 84702; 85025

== ENCOUNTER 2023-03-24 06:07 | Day surgery (SDC) | payer OTHER, SELFPAY ==
[2023-03-24] VITALS (11 sets, daily range): BP systolic 95–141; BP diastolic 52–91; PULSE 69–85; RESP 16–24; TEMP 36.2–43; O2SAT 98–100; BMI 25.3
--- NOTE | 2023-03-24 07:19 | P.PN_ITS ---
[facility] Disclaimer: The information contained in this section may have been updated after the patient was seen, as this information can be updated by other users. Medical History Acute blood loss anemia Furuncle Hyperemesis gravidarum Request for sterilization Surgical History (Updated 03/24/23 @ 06:25 by Lucina Arenas RN) History of surgery Family History (Updated 03/24/23 @ 06:25 by Lucina Arenas RN) Other Heart attack Lung cancer Thyroid cancer Social History (Updated 03/24/23 @ 06:27 by Lucina Arenas RN) Smoking Status: Current every day smoker years smoked: 10 second hand exposure: No alcohol intake: never substance use type: denies use current occupational status: unemployed Travel in the last 8 weeks: None caffeine: Yes [facility] Anesthesia Checklist Patient Identification Patient Identification: Arm Band Structural Data Admitted From: Home Planned Operative Procedure/s: Laparoscopic Bilateral Salpingectomy Consent for Planned Operative Procedure(s) Verified: Yes Verified Documents: Surgical Consent and History and Physical NPO Status Verified Time NPO: 00:00 Additional verifications Anesthesia Reactions: No Hx Blood Transfusions: No Blood Transfusion Reaction: No Airway Assessment C-Spine Mobility Assessed: Yes TMJ Mobility Assessed: Yes Dentition: Good Dentition Neurological Assessment Level of Consciousness: Awake and Alert Anesthesia Plan Anesthesia Risk discussed: Yes Anesthesia Plan: Verified ASA Class: II Anesthesia Type: General
--- NOTE | 2023-03-24 08:36 | EXP.ANES.I ---
[facility] Anesthesia Record Part I Anesthesia Record I Intake, IV Amount: 900 Estimated blood loss (mL): 2 Urine output (mL): 0 Blood Products used (#): none Blood Pressure: 141/90 SaO2: 98 Pulse Rate: 85 Respiratory Rate: 24 Temperature: 98.2 F Patient is:: Drowsy and Stable Stable to PACU at:: 08:32
--- NOTE | 2023-03-24 08:45 | EXP.OP.NOTE ---
Date of procedure: 03/24/23 Pre-op Diagnosis:: 1. Complete family status, desires permanent sterilization Post-op Diagnosis:: 1. Complete family status, desires permanent sterilization Procedure performed:: Laparoscopy, bilateral salpingectomy Surgeon:: Diamond David DO Photographs Curator(s):: N/a FORESTRY CONSULTANT:: Other Anesthesia: GETA Estimated blood loss (mL): 2 Clinical Note:: Ms Naa Raza is a 32 yo P2012 who presents to [facility] for scheduled procedure. She is complete with childbearing and desires permanent sterilization. Operative findings:: 1. On bimanual exam, uterus normal size and shape, retroverted and retroflexed. No adnexal masses palpated 2. On laparoscopic exam, grossly normal appearing liver, gallbladder, stomach and bowel. Grossly normal appearing retroverted, retroflexed uterus. Grossly normal appearing bilateral fallopian tubes and bilateral ovaries. No evidence of adhesion or endometriosis Operative note:: Risks, benefits and alternatives were discussed with the patient. Risks include but are not limited to bleeding, infection, damage to adjacent structures and VTE. Patient voiced understanding and agreed to proceed with surgery. She was wheeled back to the operating room and placed under general anesthesia without difficulty. She was placed in the dorsal lithotomy position and prepped and draped in normal sterile fashion. A straight catheter was used to drain the bladder prior to the start of the procedure. A bimanual exam was performed. A weighted Auvard was placed in the vaginal vault. A single tooth tenaculum was placed on the anterior lip of the cervix. [place] manipulator was inserted into the cervical canal and attached to the tenaculum. Weighted Auvard was removed from the vagina. Attention was then drawn to the abdomen. A 1.5 cm infraumbilical incision was made. Veress needle was tested and inserted intraabdominally without difficulty. Opening pressure of 7mm Hg. Abdomen was then insulflated to 15 mm Hg. Trocar was inserted through infraumbilical incision and laparoscope was inserted. Abdomen was viewed in its entirety. See findings above. Pictures were taken. Left lower quadrant was transilluminated. 5 mm incision was made and 5 mm disposable blunt trocar was inserted into the abdomen under direct laparoscopic visualization. Trocar was removed and sleeve was left in place. Right lower quadrant was transilluminated. A 5 mm incision was made and a 5 mm disposable trocar was inserted into the abdomen under direct laparoscopic visualization. Obturator was removed and sleeve was left in place. Fimbriated end of right fallopian tube was grasped. Ligasure was used to transect the right mesosalpinx and fallopian tube at uterine cornua, leaving right ovary in situ. Same procedure was carried out on the contralateral side. Bilateral fallopian tubes will be sent to pathology for review. Hemostasis was noted. Pictures were taken. Left lower quadrant trocar was removed under direct laparoscopic visualization. Right lower quadrant trocar was removed under direct laparoscopic visualization. Pneumoperitoneum was released into the atmosphere. Infraumbilical trocar was removed under direct laparoscopic visualization to ensure no herniation of bowel or omentum. Skin incisions were closed with 3-0 Vicryl. Dermabond was applied over closed skin incisions. Attention was then turned to the vagina. Instruments were removed from the vagina. Tenaculum site was noted to be hemostatic. Patient was awaken from anesthesia without difficulty. She was transported to recovery room in stable condition. Patient will be discharged home when awake and ambulating. She was given postop instructions as well as instructions to follow-up in the office in 2 weeks at which time pathology will be reviewed. Condition: stable Disposition: same day Specimens:: 1. Bilateral fallopian tubes Complications:: None
--- NOTE | 2023-03-24 09:07 | SUR.PHASEI ---
09- detailed report called to valerio talamantes in post op [id number]- pt left in stable condition with valerio talamantes in post op. dressings CDI, vss
--- NOTE | 2023-03-24 09:52 | P.PNANES_ITS ---
[facility] Anesthesia Record Part II Anesthesia Record Part II Discharge Time: 09:02 Destination: Surgical Day Care (OP Surgery) PACU nurse assessment reviewed?: Yes Patient Condition:: Good Anesthesia Complications:: None Swallowing reflex intact?: Yes Cyanosis?: No Blood Pressure: 125/71 Pulse Rate: 80 Temperature: 98.1 F Mental Status: Alert & Oriented Pain level:: 0 Nausea and/or vomitting:: None Intake, IV Amount: 0
--- NOTE | 2023-03-25 08:32 | P.PNANES_ITS ---
[facility] Anesthesia Record Part II Anesthesia Record Part II Discharge Time: 09:02 Destination: [facility] PACU nurse assessment reviewed?: Yes Patient Condition:: Good Anesthesia Complications:: None Swallowing reflex intact?: Yes Cyanosis?: No Blood Pressure: 115/73 Pulse Rate: 79 Temperature: 97.6 F Mental Status: Alert & Oriented Pain level:: 0 Nausea and/or vomitting:: None Intake, IV Amount: 1,000
[2023-03-25 08:33] VITALS: BP 115/73; PULSE 79; TEMP 36.4
== END 2023-03-24 09:33 | disposition home or self-care (01) ==
PROVIDERS: Visit Provider Obstetrics & Gynecology
PROC: (CPT 58661; principal; 2023-03-24 07:30)
DX: Z30.2 Encounter for sterilization (principal)
CPT/HCPCS: 58661; J2405

== ENCOUNTER 2024-08-03 14:47 | Emergency (ER) | payer OTHER, SELFPAY ==
--- NOTE | 2024-08-03 14:56 | ED_ITS ---
Discharge Plan Disposition Patient Disposition: Home, Self-Care Condition: Good Prescriptions Prescriptions: New sulfamethoxazole-trimethoprim [Bactrim DS] 800-160 mg Tablet 1 tab PO BID 10 Days Qty: 20 0RF cephalexin 500 mg capsule 500 mg PO QID 10 Days Qty: 40 0RF mupirocin 2 % ointment 1 applic topical TID 7 Days Qty: 15 0RF Referrals Follow up/Referrals: Diamond David DO [Primary Care Provider] - See instructions Activity Restrictions/Add. Instructions Additional Instructions/Restrictions: Keep the affected area clean and dry. Follow up with your regular doctor. Take the antibiotics as directed and apply the topical antibiotics as directed. Apply warm wet compresses to the affected area three or four times per day. GO TO THE ER FOR ANY WORSENING SYMPTOMS Clinical Impressions Clinical Impression: Skin abscess, Cellulitis Stand Alone Forms Stand Alone Forms: Work/School Release Instructions Patient Instructions: Cephalexin, Mupirocin, DI for Skin Abscess Print Language Print Language: [place] Discharge ED Provider: José Adam [facility] General Stated complaint: red knot on right arm warm to touch Time Seen by Provider: 08/03/24 14:56 History of Present Illness Provider Complaint: She states that for the past 2 days she has had a worsening red tender area on her right upper arm. She denies any sting or known injury. She denies any fever/chills. Related Data Previous Rx's ?Medication ?Instructions ?Recorded cephalexin 500 mg capsule 500 mg PO QID 10 days #40 caps 08/03/24 mupirocin 2 % topical ointment 1 applic topical TID 7 days #15 08/03/24 grams sulfamethoxazole 800 1 tab PO BID 10 days #20 tabs 08/03/24 mg-trimethoprim 160 mg tablet (Bactrim DS) Allergies Allergy/AdvReac Type Severity Reaction Status Date / Time No Known Allergies Allergy Verified 04/25/23 10:22 [facility] Disclaimer: The information contained in this section may have been updated after the patient was seen, as this information can be updated by other users. Medical History (Updated 08/03/24 @ 15:30 by José Adam APRN) Request for sterilization Acute blood loss anemia Furuncle Hyperemesis gravidarum Surgical History (Updated 04/25/23 @ 12:57 by Diamond David DO) Hx of bilateral salpingectomy History of surgery Family History Other Heart attack Lung cancer Thyroid cancer Social History Smoking Status: Current every day smoker years smoked: 10 second hand exposure: No alcohol intake: never substance use type: denies use current occupational status: unemployed Travel in the last 8 weeks: None caffeine: Yes ROS Obtained: Yes All systems reviewed & no additional complaints except as documented Constitutional Constitutional: Denies chills and Denies fever(s) Eyes Eyes: Denies eye discharge ENT Ears, Nose, Mouth, and Throat: Denies dizziness, Denies otalgia and Denies sore throat Cardiovascular Cardiovascular: Denies chest pain Respiratory Respiratory: Denies shortness of breath, Denies chest congestion, Denies cough, Denies stridor and Denies wheezing Gastrointestinal Gastrointestingal: Denies nausea or vomiting Musculoskeletal Musculoskeletal: Reports system reviewed and no additional complaints, except as documented and Denies arthralgias Integumentary/Breasts Skin/Breast: Reports as per HPI and Reports redness Neurologic Neurologic: Denies dizziness and Denies paresthesias Allergic/Immunologic Allergic/Immunologic: Denies wheezing Physical Exam General General appearance: alert and in no apparent distress Head Head exam: atraumatic, normocephalic and normal inspection Eye Eye exam: Present normal appearance, PERRL and EOMI ENT ENT exam: Present normal exam, normal oropharynx, mucous membranes moist, TM's normal bilaterally and normal external ear exam Neck Neck exam: Present normal inspection, full ROM and trachea midline; Absent meningismus or lymphadenopathy Chest Chest inspection: Present normal inspection and symmetric chest wall rise; Absent tenderness Respiratory Respiratory exam: Present normal lung sounds bilaterally; Absent respiratory distress Cardiovascular Cardiovascular exam: Present regular rate and normal rhythm; Absent JVD Abdominal Exam Abdominal exam: Present soft and normal bowel sounds; Absent distention, tenderness or guarding Extremities Exam Extremities exam: Present normal inspection, full ROM and normal capillary refill; Absent calf tenderness Back Exam Back exam: Present normal inspection; Absent tenderness Neurological Exam Neurological exam: Present alert and oriented X3 Psychiatric Psychiatric exam: Present normal affect and normal mood Skin Skin exam: Present erythema (there is an area or redness of her right upper arm in the bicep area that measures 3 cm diameter, no open wound, no drainage, no induration, ) Lymphatic Lymphatic Findings: no adenopathy Medical Decision Making Medical Records Medical records reviewed: No I reviewed the patient's medical records. Screening: Per USPSTF and CDC recommendations, given the prevalence of disease in our region, it is our hospital?s policy to screen for HIV and viral Hepatitis for all patients aged 18 and over and those with ongoing risk factors. Sony Inquiry Pt receiving controlled substance: No
[2024-08-03 15:10] VITALS: BP 100/64; PULSE 72; RESP 20; TEMP 37; O2SAT 98; BMI 24.5
[2024-08-03 15:35] VITALS: BP 100/64; PULSE 72; RESP 20; TEMP 37; O2SAT 98
== END 2024-08-03 15:37 | disposition home or self-care (01) ==
PROVIDERS: Emergency Provider Nurse Practitioner Family; PCP Obstetrics & Gynecology
DX: L02.413 Cutaneous abscess of right upper limb (principal)
CPT/HCPCS: 99213; G0381